=== PATIENT | female | born 1990 | race American Indian/Alaskan Native ===

== ENCOUNTER 2016-09-27 20:42 | Emergency (ER) | payer OTHER ==
[2016-09-27] MEDS ORDERED: TYLENOL PO ONE (21:12)
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
[2016-09-27 21:31] VITALS: BP 120/58
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
== END 2016-09-27 23:43 | disposition home or self-care (01) ==
LOC: ED 20:42
DX: O9A.212 Injury, poisoning and certain other consequences of external causes complicating pregnancy, second trimester (principal); M54.9 Dorsalgia, unspecified; M25.551 Pain in right hip; Z3A.16 16 weeks gestation of pregnancy; Z72.0 Tobacco use; Z91.018 Allergy to other foods; V49.50XA Passenger injured in collision with unspecified motor vehicles in traffic accident, initial encounter; Y93.89 Activity, other specified; Y99.9 Unspecified external cause status; Y92.410 Unspecified street and highway as the place of occurrence of the external cause
CPT/HCPCS: 72125; 76805

== ENCOUNTER 2017-03-15 12:06 | Inpatient (IN) | payer MEDICAID ==
[2017-03-15] MEDS ORDERED: STADOL IV PRN (12:50)
[2017-03-15] MEDS ORDERED: ePHEDrine SULFATE IV PRN (12:50)
[2017-03-15] MEDS ORDERED: PHENERGAN PO PRN ×2 (12:50→18:04)
[2017-03-15] MEDS ORDERED: BRETHINE SUB-Q PRN (12:50)
--- NOTE | 2017-03-15 12:50 | History and Physical Report ---
History of Present Illness Date of examination: 03/15/17 Date of admission: 03/15/17 12:45 History of present illness: Patient presented to labor and delivery complaints of regular contractions stating that started overnight. Initial exam by triage nurse cervix 8 cm with bulging bag patient was admitted to manage active labor. Menstrual History Regularity: regular Duration: 5 LMP: 06/07/2016 LMP reliability: definite LMP character: normal test type: urine test Date: 01/16/2017 BC at conception: none Planned ? no EDC Calculations LMP: 03/14/2017 EDC Confirmation: 03/14/2017 Past History : 1 Term Births: 0 Premature Births: 0 Living Children: 0 Para: 0 Mult. Births: 0 Prev : 0 Prev. attempt? 0 Aborta: 0 Elect. Ab: 0 Spont. Ab: 0 Ectopics: 0 Past Medical History: Asthma Past Surgical History: Negative Past Surgical History Family History Summary: Other family member - Has No Family History of Ovarvian Cancer - Entered On: Other family member - Has No Family History of Colon Cancer - Entered On: 2016 Other family member - Has No Family History of Breast Cancer - Entered On: 2016 Other family member - Has Family History of Coronary Heart Disease - Entered On : 01/16/2017 Social History: Patient is single Unemployed Risk Factors: Smoked Tobacco Use: Never smoker Drug use: yes Substance: marijuana Alcohol use: yes Drinks per day: social Past Medical History Surgery (Non-photographer finish): Negative Past Surgical History Social Hx: Patient is single Unemployed Current Allergies (reviewed today): No known allergies L Past History Past Medical History: asthma, other (see HPI) Past Surgical History: other (see HPI) CERTIFIED REGISTERED NURSE ANESTHETIST History: other (see HPI) Family/Genetic History: other (see HPI) Social history: other (see HPI) - Obstetrical History Expected Date of Delivery: 03/14/17 Actual Gestation: 40 Week(s) 1 Day(s) : 1 Para: 0 Hx # Term Pregnancies: 0 Number of Pregnancies: 0 Spontaneous Abortions: 0 Induced : 0 Number of Living Children: 0 Medications and Allergies Allergies Allergy/AdvReac Type Severity Reaction Status Date / Time tree nut Allergy Anaphylaxis Verified 09/27/16 21:52 Home Medications Medication Instructions Recorded Confirmed Last Taken Type Vit-Fe Fumar-FA [ 1 tab PO QDAY 09/27/16 03/15/17 03/14/17 10: 00 History Vitamin] - Physical Exam Breasts: Positive: deferred Cardiovascular: Regular rate Lungs: Positive: Normal air movement Abdomen: Positive: normal appearance, soft Genitourinary (Female): Positive: normal external genitalia Vagina: Positive: normal moisture Uterus: Positive: enlarged Anus/Rectum: Positive: normal perianal skin Extremities: Positive: edema Deep Tendon Reflex Grade: Normal +2 - Obstetrical FHR: category 1 Results Result Diagrams: 03/15/17 13:30 All other labs normal. Assessment and Plan - Patient Problems (1) Asthma Current Visit: Yes Status: Chronic Qualifiers: Asthma severity: mild (2) Active labor at term Current Visit: Yes Status: Acute Plan to address problem: We'll admit and follow normal labor protocol. (3) Group B Streptococcus carrier state affecting Current Visit: Yes Status: Chronic Plan to address problem: Give antibiotic prophylaxis
[2017-03-15] MEDS ORDERED: POLYCILLIN/NS 2 GM/100 ML 2 GM/100 ML BAG IV ONE (13:00)
[2017-03-15] MEDS ORDERED: PITOCin/NS 20 UNIT/1000ML DRIP 20 UNITS/1,000 ML BAG IV SCH (13:00)
[2017-03-15] MEDS ORDERED: BRETHINE IVP PRN (13:00)
[2017-03-15] MEDS: LACTATED RINGERS 1,000 ML IV SCH ×2 (13:32→14:26)
[2017-03-15 14:08] LABS: Hematocrit 34.4 % (30.3-42.9); Hemoglobin 11.4 gm/dl (10.1-14.3); Mean Corpuscular HGB Conc 33 % (30-34); Mean Corpuscular Hemoglobin 27 pg (28-32); Mean Corpuscular Volume 81 fl (79-97); Platelet Count 232 K/mm3 (140-440); Red Blood Count 4.25 M/mm3 (3.65-5.03); White Blood Count 11.6 K/mm3 (4.5-11.0)
[2017-03-15] MEDS ORDERED: XYLOCAINE 2% INFILTRATI ONE (15:56)
--- NOTE | 2017-03-15 16:16 | Procedure Note ---
OB Delivery Note - Delivery Date of Delivery: 03/15/17 Surgeon: ANIA PETERSON Estimated blood loss: 300cc - Vaginal Delivery position: OA Intrapartum events: meconium Delivery augmentation: rupture of membranes Delivery monitor: external FHT, external uterine Route of delivery: Delivery placenta: spontaneous Episiotomy: none Delivery laceration: 2nd degree (midline) Delivery repair: vicryl Anesthesia: intravenous Delivery comments: Patient light meconium during labor. NICU personnel was at time of delivery was due to spontaneous cry did not stay to evaluate the baby with good Apgars movement. - A at 1 minute: 8 at 5 minutes: 9 Infant Gender: Female
[2017-03-15] MEDS ORDERED: POLYCILLIN/NS 1 GM/50 ML 1 GM/50 ML BAG IV SCH (17:00)
[2017-03-15] MEDS ORDERED: NORCO 5/325 PO PRN (18:04)
[2017-03-15] MEDS ORDERED: TUCKS PAD TP PRN (18:04)
[2017-03-15] MEDS ORDERED: TYLENOL PO PRN (18:04)
[2017-03-15] MEDS ORDERED: DULCOLAX PR PRN (18:04)
[2017-03-15] MEDS ORDERED: BENADRYL PO PRN (18:04)
[2017-03-15] MEDS ORDERED: MILK OF MAGNESIA PO PRN (18:04)
[2017-03-15] MEDS ORDERED: SODIUM CHLORIDE FLUSH SYRINGE 10 ML IV NR (18:04)
[2017-03-16] MEDS: MOTRIN PO SCH ×4 (00:12→18:24)
[2017-03-16 05:03] LABS: Hematocrit 28.1 % (30.3-42.9); Hemoglobin 9.3 gm/dl (10.1-14.3)
[2017-03-16] MEDS ORDERED: BOOSTRIX IM ONE (06:00)
[2017-03-16] MEDS ORDERED: PRENATAL VITAMIN PO SCH (10:00)
--- NOTE | 2017-03-16 12:26 | Progress Note ---
Assessment and Plan - Patient Problems (1) Vaginal delivery Current Visit: Yes Status: Acute (2) Group B Streptococcus carrier state affecting Current Visit: Yes Status: Chronic Subjective - Subjective Date of service: 03/16/17 Principal diagnosis: vag del at term Interval history: nl pp course Hct 28, down from 34, asx Patient reports: appetite normal, voiding normally, pain well controlled, ambulating normally : doing well Objective - Vital Signs Latest vital signs: Vital Signs Temp Pulse Resp BP BP Pulse Ox 03/16/17 07:56 98.2 F 76 16 96/56 97 03/15/17 23:50 98.6 F 76 16 99/77 03/15/17 20:00 98.6 F 66 16 101/69 03/15/17 17:30 98.5 F 72 16 113/62 03/15/17 16:49 90 117/68 03/15/17 16:34 75 118/68 03/15/17 16:19 87 125/72 03/15/17 16:05 80 118/60 03/15/17 13:36 18 03/15/17 13:28 85 126/64 03/15/17 13:24 97.2 F L 85 16 126/64 98 Intake and Output 03/15/17 03/16/17 03/16/17 23:59 07:59 15:59 Intake Total 960 300 360 Output Total 1200 800 Balance -240 -500 360 Intake: Oral 360 240 Intake, Free Water 600 300 120 Output: Urine 1200 800 Void 1200 800 Other: Total, Intake Amount 360 240 Total, Output Amount 500 800 # Voids Void 1 1 Estimated Blood Loss 300 - Exam Breasts: Present: deferred Abdomen: Present: normal appearance, soft Uterus: Present: normal, firm Extremities: Present: normal - Labs Labs: Abnormal lab results 03/15/17 03/16/17 Range/Units 13:30 04:51 WBC 11.6 H (4.5-11.0) K/mm3 Hgb 9.3 L (10.1-14.3) gm/dl Hct 28.1 L D (30.3-42.9) % MCH 27 L (28-32) pg
[2017-03-17] MEDS: MOTRIN PO SCH ×2 (05:39→12:12)
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
[2017-03-17 16:32] VITALS: BP 110/60
== END 2017-03-17 16:15 | disposition home or self-care (01) | DRG 775 ==
LOC: TRG 12:06 → LD 12:45 → OB 17:53
PROVIDERS: ADMIT Obstetrics & Gynecology; ATTEND Obstetrics & Gynecology
PROC: 10E0XZZ Delivery of Products of Conception, External Approach (ICD-10-PCS; principal; 2017-03-15)
PROC: 0KQM0ZZ Repair Perineum Muscle, Open Approach (ICD-10-PCS; 2017-03-15)
DX: O99.52 Diseases of the respiratory system complicating childbirth (principal); J45.909 Unspecified asthma, uncomplicated; O99.824 Streptococcus B carrier state complicating childbirth; O77.0 Labor and delivery complicated by meconium in amniotic fluid; O70.1 Second degree perineal laceration during delivery; F12.90 Cannabis use, unspecified, uncomplicated; O99.314 Alcohol use complicating childbirth; O99.324 Drug use complicating childbirth; Z3A.40 40 weeks gestation of pregnancy; Z37.0 Single live birth; Z82.49 Family history of ischemic heart disease and other diseases of the circulatory system; Z72.89 Other problems related to lifestyle
CPT/HCPCS: 36415; 85014; 85018; 85027; 86850; 86900; 86901; 99211; G0463; J0290; J0595; J2590; J7120